=== PATIENT | female | born 1945 | race Caucasian/White ===

== ENCOUNTER 2019-04-10 00:24 | Emergency (ER) | payer MEDICARE, MEDICAID ==
[~2019-04-10] VITALS: Ht 162.6 cm; Wt 83.5 kg
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
[2019-04-10 01:03] VITALS: BP 134/78
[2019-04-10] MEDS ORDERED: IBUPROFEN600 MG ORAL (01:05)
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
[2019-04-10 01:41] VITALS: BP 131/74
--- NOTE | 2019-04-10 01:41 | NUR ---
ER DISCHARGE NOTE: Patient is cleared to be discharged per Dr. Lancaster. X-ray done, Meds given as ordered. Pt is aox4 on room air with stable vital signs. Pt was given dc and prescription instructions and was able to verbalize understanding. Pt ID band removed. Pt is able to ambulate with steady gait and took all belongings.
--- NOTE | 2019-04-10 11:18 | Diagnostic Imaging Report ---
Indication: Chest pain Comparison: None A single view chest radiograph was obtained. Findings: No definite infiltrate or pulmonary vascular congestion identified. The heart is enlarged. The aorta is mildly enlarged consistent with atherosclerotic vascular disease. The bones are osteopenic. Impression: No acute disease
== END 2019-04-10 01:41 | disposition home or self-care (01) ==
LOC: EMR 00:59
DX: S20.211A Contusion of right front wall of thorax, initial encounter (principal); F41.9 Anxiety disorder, unspecified; R73.03 Prediabetes; W22.8XXA Striking against or struck by other objects, initial encounter; Y92.9 Unspecified place or not applicable
CPT/HCPCS: 71045; 99283